=== PATIENT | male | born 1955 | race Caucasian/White ===

== ENCOUNTER 2017-01-20 11:21 | Observation (INO) | payer OTHER ==
[2017-01-20] MEDS ORDERED: NS 500 ML IV ONE (12:09)
[2017-01-20 12:13] LABS: ADD DIFF? NO; ADD MORPH? NO; ADD SCAN? YES; FRAGMENT RBC FLAG 0 (0-99); LEFT SHIFT FLG 10 (0-99); LIPEMIA HEMOLYSIS FLAG 90 (0-99); PLATELET CLUMPS FLAG 0 (0-99)
[2017-01-20 12:16] LABS: % IMMATURE GRANULYOCYTES 1.5 % (0.0-1.1); HEMOGLOBIN 16.4 g/dL (13.7-17.5); MEAN CELL HEMOGLOBIN 32.5 pg (27.9-34.1); MEAN CELL HEMOGLOBIN CONCENTR. 35.7 g/dL (32.4-36.7); MEAN CELL VOLUME 91.1 fL (81.5-99.8); MEAN PLATELET VOLUME 9.7 fL (8.7-11.7); PLATELET COUNT 218 10^3/uL (150-400); RED BLOOD CELL COUNT 5.05 10^6/uL (4.40-6.38); RED CELL DISTRIBUTION WIDTH 12.2 % (11.5-15.2)
[2017-01-20 12:17] LABS: ATYPICAL LYMPHOCYTE FLAG 140 (0-99)
[2017-01-20 12:37] LABS: ALANINE AMINOTRANSFERASE 38 IU/L (21-72); ALBUMIN 3.9 g/dL (3.5-5.0); ALKALINE PHOSPHATASE 76 IU/L (38-126); ANION GAP 16 mEq/L (8-16); ASPARTATE AMINOTRANSFERASE 19 IU/L (17-59); BILIRUBIN,TOTAL 0.5 mg/dL (0.1-1.4); CALCIUM 9.1 mg/dL (8.5-10.4); CARBON DIOXIDE 23 mEq/l (22-31); CHLORIDE 99 mEq/L (97-110); CREATININE 0.6 mg/dL (0.7-1.3); GLOMERULAR FILTRATION RATE > 60; GLUCOSE 117 mg/dL (70-100); POTASSIUM 4.3 mEq/L (3.5-5.2); SODIUM 138 mEq/L (134-144); TOTAL PROTEIN 7.3 g/dL (6.3-8.2)
[2017-01-20 12:46] LABS: INR 1.01 (0.83-1.16)
[2017-01-20 12:47] LABS: APTT 32.6 SEC (23.0-38.0)
[2017-01-20 12:55] LABS: SCAN POSITIVE
[2017-01-20 12:56] LABS: LARGE PLATELETS PRESENT; PLATELET ESTIMATE ADEQUATE (ADEQ)
[2017-01-20] MEDS ORDERED: IOPAMIDOL (ISOVUE 370) 100 ML BTL IV ONE (13:16)
--- NOTE | 2017-01-20 13:29 | UCPHY ---
H & P Time Seen by Provider: 01/20/17 11:31 Patient Type: Established HPI/ROS: HPI Swollen lymph nodes, vomiting, diarrhea, cough. 61-year-old male by private vehicle. He reports that he returned from [place] on January 11 by airplane. He reports that on this day he developed fever, nausea followed by vomiting and then diarrhea. He reports that this persisted for the next 5 days or so. The nausea and vomiting improved as did the diarrhea but he then developed some wheezing and a dry cough productive of a yellowish sputum. He has a history of a tibial plateau fracture in the left lower extremity. He was getting a preop physical by his freight sorter, Dr. Amadou Cabrera. She brought the patient down to the emergency room for evaluation of which she describes as severe parotid gland swelling. The patient denies any difficulty swallowing. He denies voice changes or stridor. No difficulty breathing. ROS: Constitutional: No fever, no chills. No weakness. Eyes: No discharge. No changes in vision. ENT: No sore throat. No nasal congestion or rhinorrhea. Respiratory: No cough. No shortness of breath. Cardiac: No chest pain, no palpitations. Gastrointestinal: No abdominal pain, no vomiting, no diarrhea. Genitourinary: No hematuria. No dysuria or increased frequency with urination. No testicular pain. Musculoskeletal: No back pain. No neck pain. No myalgias or arthralgias. Skin: No rashes. Neurological: No headache. No focal weakness or altered sensation. Past medical history: Traumatic brain injury, numerous orthopedic surgeries, as above, appendectomy. Social history: Here by himself currently. Nonsmoker. Physical Exam: General Appearance: Alert, no distress. This patient is responding to questions appropriately and in full sentences. This patient appears well- hydrated and well-nourished. No voice changes. Eyes: Pupils equal and round no pallor or injection. No lid edema, erythema or injection. ENT, Mouth: Mucous membranes are moist. The pharyngeal tissues are unremarkable. No edema or swelling. No asymmetry suggestive of abscess. No erythema or exudates. There is no elevation of the tongue. The sublingual tissues are soft and easily depressible. No [place] submental induration. Respiratory: There are no retractions, lungs are clear to auscultation with good air movement bilaterally. Cardiovascular: Regular rate and rhythm. No murmur. Gastrointestinal: Obese habitus. Abdomen is soft and nontender, no masses, bowel sounds normal. No focal tenderness at McBurney's point. No Pop sign. Neurological: Motor sensory function is grossly intact. Cranial nerves are normal. Gait is normal. Skin: Warm and dry, no rashes. Musculoskeletal: Neck is supple and nontender. Marked bilateral symmetric submandibular swelling. Possibly lymphadenopathy verses the sublingual salivary glands. Extremities are symmetrical. All joints range without pain or impingement. Psychiatric: No agitation. No depression. Database: EKG: Imaging: Chest x-ray PA and lateral; the cardiac mediastinal silhouette is unremarkable. No evidence of infiltrate or pneumothorax. No acute cardiopulmonary disease process noted. Interpreted by me. CT neck with IV contrast; significant for bilateral sialoadenitis. There is a left thyroid nodule measuring 1.5 cm. There is also an asymmetric enlargement of the right side of the vallecula. Please see radiologist's report for further details. Results were discussed with staff radiologist Dr. Tomlinson. Procedures: Emergency department course: IV placed. He was placed on a cardiac/vascular sonographer. Vital signs reviewed. Pulse oximetry on room air is 80%. Patient tachycardic. Chest x-ray obtained. After my evaluation and review of his creatinine he was sent for a CT scan of his neck with contrast enhancement. 2:30 p.m., patient re-evaluated. No stridor. No voice changes. Results of CT discussed with him. Recommendation for admission discussed with him and his . They endorse. They do want to go by private vehicle. 2:35 p.m., spoke with Dr. Medina, hospitalist. She accepts the patient for admission. 3:10 p.m., spoke with [facility] ENT physician asset protection assistant Candelaria Hurt. ENT will see the patient when he arrives at [facility]. She recommended treatment with clindamycin. She stated that this could be started when he gets over to the hospital. We will give the patient 10 mg of IV Decadron prior to his discharge here. 3:15 p.m., plan discussed with the patient. He remains mildly tachycardic. He is also asking for some pain medication and is mildly hypoxic. We are strongly recommending ambulance transport. The patient refuses ambulance transport. He will be taken by his . In my professional opinion he understands the risks. We will hold giving narcotics until he gets over to [facility]. He is moderately tachycardic and hypertensive on discharge. I spoke to Dr. Medina regarding his discharge condition as well as his use of chronic opiate pain medications. She will evaluate him when he arrives to [facility]. Differential Diagnosis: The differential diagnosis on this patient includes but is not limited to viral syndrome, mumps. Ariel's angina unlikely. This represents a partial list of diagnoses considered. These considerations are based on history, physical exam , past history, reassessment and diagnostic testing. Smoking Status: Never smoked Constitutional: Initial Vital Signs Temperature (C) 36.9 C 01/20/17 11:41 Heart Rate 126 H 01/20/17 11:41 Respiratory Rate 20 01/20/17 11:41 Blood Pressure 160/114 H 01/20/17 11:41 O2 Sat (%) 88 L 01/20/17 11:41 O2 Delivery Mode Nasal Cannula O2 (L/minute) 2 Allergies/Adverse Reactions: No Known Allergies Allergy (Unverified 01/20/17 13:27) Home Medications: Medication Instructions Recorded Cyclobenzaprine [Flexeril 10 MG 10 mg PO TID PRN 01/20/17 (*)] Diazepam [Valium 5 MG (*)] 5 mg PO TID PRN 01/20/17 Eszopiclone [Lunesta] 3 mg PO HS 01/20/17 Losartan Potassium [Cozaar 50 mg 100 mg PO DAILY 01/20/17 (*)] Meloxicam 15 mg PO DAILY 01/20/17 Omeprazole [Prilosec 20 mg] 20 mg PO DAILY 01/20/17 Ondansetron Odt [Zofran Odt 4 mg 4 mg PO DAILY PRN 01/20/17 (*)] Oxymorphone HCl [Opana ER] 40 mg PO BID 01/20/17 Tamsulosin HCl [Flomax 0.4 MG (*)] 0.4 mg PO DAILY 01/20/17 oxyCODONE HCL/ACETAMINOPHEN 1 each PO TID PRN 01/20/17 [Percocet 10-325 mg Tablet] Medical Decision Making - Data Points Laboratory Results: Laboratory Results 01/20/17 11:55 01/20/17 11:55 01/20/17 13:32 Mumps Virus IgG Ab Pending Mumps IgG Ab Index Pending Mumps Virus IgM Ab Pending Mumps IgM Ab Index Pending Medications Given: Discontinued Medications Dexamethasone (Decadron Injection) 10 mg IVP ONCE ONE Stop: 01/20/17 15:19 Last Admin: 01/20/17 15:20 Dose: 10 mg Diazepam (Valium) 5 mg PO TID PRN PRN Reason: Spasms Stop: 07/19/17 18:21 Last Admin: 01/20/17 18:52 Dose: 5 mg Hydromorphone HCl (Dilaudid) 0.2 - 0.4 mg IVP Q2HRS PRN PRN Reason: Pain, Severe Unable to Take PO Stop: 01/30/17 16:33 Last Admin: 01/20/17 18:56 Dose: 0.4 mg Sodium Chloride (Ns) 500 mls @ 0 mls/hr IV ONCE ONE PRN Reason: As Directed Stop: 01/20/17 12:10 Last Admin: 01/20/17 11:55 Dose: 500 mls Departure - Departure Disposition: [facility] Inpatient Acute Clinical Impression: Viral syndrome, Bronchitis, Mandibular gland swelling, Tachycardia - PQRS PQRS Measurement: 134: Depression screening and followup, PRIME MD-PHQ2 (12 years and older) Over the last 2 weeks, how often have you been bothered by any of the following problems? 1. Feeling down, depressed, or hopeless? 2. Little interest or pleasure in doing things? Answered no to both questions. 130: Documentation of medications. Reviewed all patient medications, doses, route and frequency. 226: Do you smoke? No. 47: 65 and older: Advanced care planning. Patient designates surrogate decision maker as spouse. 51: 18 years old and older with diagnosis of COPD, spirometry performance. NA 52: 18 years old and older with COPD and symptoms of COPD or FEV1<60% predicted prescribed a B Agonist. NA
[2017-01-20 15:01] LABS: COLOR YELLOW; LEUKOCYTE ESTERASE,URINE NEGATIVE (NEGATIVE); NITRITE,URINE NEGATIVE (NEGATIVE)
[2017-01-20 15:10] LABS: RBC,URINE 0-1 /hpf (0-3); WBC,URINE 0-1 /hpf (0-3)
[2017-01-20] MEDS ORDERED: DEXAMETHASONE 10 MG/ML VIAL IVP ONE (15:18)
[2017-01-20] MEDS ORDERED: DEXAMETHASONE 10 MG/ML VIAL ONE (15:19)
[2017-01-20] MEDS: HYDROmorphONE/DILAUDID 1 MG/ML SYR IVP PRN ×2 (16:57→18:56)
[2017-01-20] MEDS ORDERED: DIAZEPAM 5 MG TAB PO PRN (18:22)
[2017-01-20] MEDS ORDERED: NON-FORMULARY NEW DRUG (Oxycodone Hcl/Acetaminophen [Percocet 10-325 Mg Tablet] 1 EACH) PO PRN (18:22)
[2017-01-20] MEDS ORDERED: CYCLOBENZAPRINE 10 MG TAB PO PRN (18:22)
[2017-01-20] MEDS ORDERED: OXYCODONE/APAP 5/325 TAB PO PRN (18:39)
[2017-01-20 19:24] VITALS: BP 178/130; PULSE 114; RESP 20; TEMP 98.7; O2SAT 89
[2017-01-20] MEDS ORDERED: Oxymorphone Hcl [Opana Er] 40 MG PO SCH (21:00)
[2017-01-20] MEDS ORDERED: ZOLPIDEM TARTRATE 5 MG TAB PO SCH (21:00)
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
[2017-01-21] MEDS ORDERED: Meloxicam [Meloxicam] 15 MG PO SCH (09:00)
[2017-01-21] MEDS ORDERED: PANTOPRAZOLE SODIUM 40 MG TAB PO SCH (09:00)
[2017-01-21] MEDS ORDERED: LOSARTAN POTASSIUM 50 MG TAB PO SCH (09:00)
[2017-01-21] MEDS ORDERED: TAMSULOSIN HCL 0.4 MG CAP PO SCH (09:00)
[2017-01-21] MEDS ORDERED: NON-FORMULARY NEW DRUG (Omeprazole [Prilosec 20 Mg] 20 MG) PO SCH (09:00)
[2017-01-23 14:01] LABS: MUMPS IGG INDEX VALUE 5.2; MUMPS IGM ANTIBODY NEGATIVE (Negative); MUMPS IGM INDEX VALUE 0.45 (0.00-0.79)
== END 2017-01-20 20:20 | disposition left against medical advice (07) ==
LOC: CED 11:21 → INTOOBSV 14:34 → CEDHOLD 14:34 → F3N 15:52
PROVIDERS: ADMIT Internal Medicine; ATTEND Internal Medicine
DX: K11.20 Sialoadenitis, unspecified (principal); F11.20 Opioid dependence, uncomplicated; S82.142D Displaced bicondylar fracture of left tibia, subsequent encounter for closed fracture with routine healing
CPT/HCPCS: 70491; 71020; 96361; 96374; G0378; G0463; J1170; Q9967; 80053-PO; 81003-PO; 81015-PO; 83605-PO; 85025-PO; 85610-PO; 85730-PO; 86735-90; 87400-PO

== ENCOUNTER → 2017-07-11 | Outpatient (CLI) | payer OTHER | LOC: CIMAGING 15:14 | DX: M85.862 Other specified disorders of bone density and structure, left lower leg (principal); M25.462 Effusion, left knee; S80.02XA Contusion of left knee, initial encounter | CPT/HCPCS: 73562-PO ==

== ENCOUNTER → 2019-02-21 | Outpatient (CLI) | payer OTHER, MEDICARE | LOC: CIMAGING 12:57 ==